=== PATIENT | female | born 1970 | race Two or more races ===

== ENCOUNTER 2020-07-27 20:34 | Emergency (ER) | payer OTHER ==
[2020-07-27 20:50] VITALS: TEMP 98.3; BMI 31.4
[2020-07-27] MEDS ORDERED: METOCLOPRAMIDE HCL INJECTION 10 MG/2 ML VIAL IVPUSH ONE (21:56)
[2020-07-27] MEDS ORDERED: LIDOCAINE PATCH REMOVAL MC SCH (22:00)
[2020-07-27] MEDS ORDERED: METOCLOPRAMIDE HCL INJECTION 10 MG/2 ML VIAL ONE (22:12)
[2020-07-27] MEDS ORDERED: SODIUM CHLORIDE 0.9% 500 ML INFUS.BAG IV ONE (22:13)
[2020-07-27] MEDS ORDERED: diazePAM 5 MG TABLET PO ONE (22:13)
[2020-07-27] MEDS ORDERED: LIDOCAINE 5% TOPICAL PATCH TP ONE (22:14)
[2020-07-27] MEDS ORDERED: diazePAM 5 MG TABLET ONE (22:17)
[2020-07-27] MEDS ORDERED: LIDOCAINE 5% TOPICAL PATCH ONE (22:18)
[2020-07-27 22:48] LABS: BASO % 0.8 % (0-2.0); EOS % 0.5 % (0-4.5); HEMATOCRIT 34.5 % (32.4-45.2); HEMOGLOBIN 11.1 GM/dL (10.7-15.3); LYMPH % 16.4 % (8-40); MCH 23.7 pg (25.7-33.7); MCHC 32.1 g/dl (32.0-36.0); MEAN CELL VOLUME 73.9 fl (80-96); MEAN PLT VOLUME 10.9 fl (7.5-11.1); MONO % 7.1 % (3.8-10.2); NEUT % 75.2 % (42.8-82.8); PLATELET COUNT 186 K/MM3 (134-434); RBC 4.66 M/mm3 (3.60-5.2); RDW 16.4 % (11.6-15.6); WHITE BLOOD COUNT 6.8 K/mm3 (4.0-10.0)
[2020-07-27 23:04] LABS: ALBUMIN 3.7 g/dl (3.4-5.0); BLOOD UREA NITROGEN 11.1 mg/dL (7-18); CALCIUM 9.5 mg/dL (8.5-10.1)
[2020-07-27 23:07] LABS: CREATININE 0.6 mg/dL (0.55-1.3)
[2020-07-27 23:09] LABS: BILIRUBIN,TOTAL 0.1 mg/dL (0.2-1); TOT PROT 7.8 g/dl (6.4-8.2)
[2020-07-28 00:15] VITALS: BP 146/74; PULSE 84
== END 2020-07-28 00:14 | disposition home or self-care (01) ==
LOC: JER 20:34
DX: R51.9 Headache, unspecified (principal); R20.8 Other disturbances of skin sensation
CPT/HCPCS: 36415; 80053; 85025; 99283-25

== ENCOUNTER 2022-11-26 18:04 | Emergency (ER) | payer OTHER ==
[2022-11-26 18:20] VITALS: RESP 18; BMI 30.2
[2022-11-26 21:08] LABS: EPI CELLS 18 /uL (0-25.1); HYALINE CASTS 0 /uL (0-3.1); URINE APPEARANCE CLEAR; URINE BILIRUBIN NEGATIVE (NEGATIVE); URINE COLOR DK YELLOW; URINE GLUCOSE (UA) NEGATIVE (NEGATIVE); URINE KETONE NEGATIVE (NEGATIVE); URINE LEUK ESTERASE TRACE (NEGATIVE); URINE NITRITE POSITIVE (NEGATIVE); URINE PROTEIN NEGATIVE (NEGATIVE); URINE RBC 5 /uL (0-23.9); URINE WBC 2 /uL (0-25.8)
[2022-11-26] MEDS ORDERED: SULFAMETHOXAZOLE/TRIMETHOPRIM 800MG/160MG D.S. TABLET PO ONE (21:54)
[2022-11-26 22:02] VITALS: BP 146/67; PULSE 60; TEMP 97.8
[2022-11-26] MEDS ORDERED: SULFAMETHOXAZOLE/TRIMETHOPRIM 800MG/160MG D.S. TABLET ONE (22:07)
== END 2022-11-26 22:23 | disposition home or self-care (01) ==
LOC: JER 18:04
DX: N39.0 Urinary tract infection, site not specified (principal); R30.0 Dysuria; N89.9 Noninflammatory disorder of vagina, unspecified
CPT/HCPCS: 36415; 81003; 87070; 87077; 87086; 87205; 87491; 87591; 99283-25